=== PATIENT | female | born 1955 | race Caucasian/White ===

== ENCOUNTER → 2018-10-08 | Outpatient (CLI) | payer OTHER ==
[~2018-10-08] MED LIST: CHOL10005 PO; HYDR30CR10 TP; LIDO700A29 TD; LOSA-57 PO; MULT1TAB64 PO
--- NOTE | 2018-10-08 11:34 | RADIOLOGY IMAGING REPORT ---
FACILITY: [facility] PATIENT NAME: Lani Aguirre : 1955 MR: [id number] V: [id number] EXAM DATE: ORDERING PHYSICIAN: BIANCA HERNANDEZ TECHNOLOGIST: Location: [facility] Patient: Lani Aguirre : 1955 Visit/Account:[id number] Date of Sevice: 10/08/2018 DEXA Scan Clinical history: Screening for musculoskeletal disorder. Comparison: DEXA scan from 09/28/2016. LUMBAR SPINE: The bone mineral density (BMD) measured from L1-L4 correlates with a Z-score of -0.6 and a T-score of -2.5 which is osteoporosis as defined by the World Health Organization. The corresponding risk of f racture in the lumbar spine is 6 times increased compared with a young adult reference population. T his value has increase by 8.8 % since the prior study. More than 5% change is considered significant . HIP: Bone mineral density (BMD) measured in the LEFT total hip region correlates with a Z-score -0.9 and a T-score of -2.3 which is osteopenia as defined by the World Health Organization. The corresponding risk of fracture in the hip is 4-6 times increased compared to a young adult reference population. Th is value has increased by 5.0 % since the prior study. More than 5% change is considered significant . T score left femoral neck -2.7 Bone mineral density (BMD) measured in the Femoral Neck region measures 0.669 g/cm?. IMPRESSION: 1. Lumbar spine: Osteoporosis. There has been 8.8% increase in the bone mineral density since the p revious exam. 2. Left Total Hip: Osteopenia. There has been 5% increase in the bone mineral density since the pre vious exam. 3. Femoral Neck: Bone Mineral Density is 0.669 g/cm? The next DEXA scan of this patient should include the following sites: L1-L4 and the left hip. FRAX? WHO Fracture Risk Assessment Tool link: <http://www.shef.ac.uk/FRAX/tool.jsp?locationValue=9> PLEASE NOTE: 1) The World Health Organization defines low BMD as follows: T-score Normal > -1 Osteopenia < -1 and > -2.5 Osteoporosis < -2.5 without fractures Established osteoporosis < -2.5 with fractures 2) In general, you may wish to consider: Diagnosis Treatment Follow-up DEXA Normal BMD Prevention 2-3 years Osteopenia Prevention/therapy 1-2 years Osteoporosis Therapy Yearly 3) Fracture risk estimated from the T-score is more accurate for vertebral fractures (often spontane ous) than for hip fractures. Report Dictated By: Luz Wilde MD at 10/08/2018 11:23 AM Report E-Signed By: Luz Wilde MD at 10/08/2018 11:25 AM WSN:[email or web address]
== END ==
LOC: RAD 10:05
PROVIDERS: ATTEND Internal Medicine Hematology & Oncology
DX: Z13.820 Encounter for screening for osteoporosis (principal); M85.88 Other specified disorders of bone density and structure, other site; M81.0 Age-related osteoporosis without current pathological fracture
CPT/HCPCS: 77080